=== PATIENT | female | born 1960 | race Caucasian/White ===

== ENCOUNTER 2018-09-03 12:20 | Day surgery (SDC) | payer BC ==
[~2018-09-03] VITALS: Ht 162.6 cm; Wt 63.5 kg
[~2018-09-03 12:20] MED LIST: IMPOYZ60 GM TOP; POTASSIUM CHLOR8 ME1 PO
[2018-09-03] MEDS ORDERED: ZOFRAN8 MG PO ×2 (12:44→15:00)
[2018-09-03] MEDS ORDERED: NORCO 5-325 TA1 EACH PO ×2 (12:44→15:00)
[2018-09-03] MEDS ORDERED: NEURONTIN600 MG PO ×2 (12:45→15:00)
[2018-09-03] MEDS ORDERED: SENNA8.6 MG PO ×2 (12:45→15:00)
--- NOTE | 2018-09-03 14:30 | NUR ---
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
[2018-09-03] MEDS ORDERED: XARELTO15 MG PO ×2 (15:07→15:29)
== END 2018-09-03 15:45 | disposition home or self-care (01) ==
LOC: DS 12:20 → OPS 12:20
DX: S82.141A Displaced bicondylar fracture of right tibia, initial encounter for closed fracture (principal); I82.890 Acute embolism and thrombosis of other specified veins; Z53.8 Procedure and treatment not carried out for other reasons
CPT/HCPCS: 64445; 64447; 76942; 93971; J0330; J0735; J1100; J1885; J2250; J2405; J2704; J2765; J3010; J7120

== ENCOUNTER 2024-08-08 08:50 | Day surgery (SDC) | payer BC ==
[2024-08-06 08:49] VITALS: BP 153/97
[~2024-08-08] VITALS: Ht 162.6 cm; Wt 68.2 kg
--- NOTE | ~2024-08-08 | OR ---
[facility] [address] [facility] [place] [address] Draft DATE OF OPERATION: 08/08/2024 SURGEON: Mary Melgar MD PREOPERATIVE DIAGNOSIS: Postmenopausal bleeding. POSTOPERATIVE DIAGNOSIS: Postmenopausal bleeding. PROCEDURE PERFORMED: Hysteroscopy, dilatation and curettage and guided biopsies. ANESTHESIA: General endotracheal. IV FLUIDS: Please see Anesthesia record. ESTIMATED BLOOD LOSS: Zero. URINE OUTPUT: Not indicated. SPECIMENS: 1. Endometrial curettings. 2. Endometrial polyp. COMPLICATIONS: None. FINDINGS: Grade 2 uterine prolapse was noted at the patient's hymen. Cervix appeared normal. Hysteroscopy showed 3 small polyps that were removed in their entirety. No conservative findings are evident of hyperplasia or malignancy. CONDITION: Stable to recovery room. PATIENT NAME: JORGE A JIMENES OPERATIVE REPORT DATE OF : 64 REPORT #: [id number] PHYSICIAN: MARY MELGAR MD PCP: TONI BRASHER PA-C REPORT IS CONFIDENTIAL AND NOT TO BE RELEASED WITHOUT AUTHORIZATION [facility] [address] [place], [place] [address], [place] [address] Draft INDICATION AND CONSENT: The patient is a 64-year-old postmenopausal female, who presented with one episode of postmenopausal bleeding. A pelvic ultrasound was performed, which showed a thickened endometrial stripe. Thus, recommendation was for endometrial sampling. The patient was given the option of an endometrial biopsy in office versus hysteroscopy and D and C in the operating room for a more thorough examination of the intrauterine tissue. She opted for the hysteroscopy and D and C and guided biopsy. All the risks, benefits, alternatives and indications were reviewed with the patient in great detail including the risk of bleeding, infection, damage to surrounding structures. Consents were signed and all questions were answered. PROCEDURE IN DETAIL: The patient was taken to the operating room with IV fluids running and pneumatic compression stockings applied to the lower extremities. She was prepped and draped in a normal sterile fashion and placed in a lithotomy position. Time out was performed. No antibiotics are indicated. A speculum was placed. The cervix was identified. Single tooth tenaculum was placed on the anterior lip of the cervix. Cervix was sequentially dilated to accommodate a 5 mm hysteroscope. The hysteroscope was placed and the aforementioned findings were noted. A small tissue biopsy device was placed in the hysteroscope and the clots were removed in their entirety. The hysteroscope was then removed. A small curettage was then performed. The endometrial curettings were sent to pathology. Single tooth tenaculum was removed from the patient's cervix. No bleeding was noted. No laceration and no concerning findings. The patient was awoken from anesthesia. She tolerated the procedure well. Counts were correct x2. She was taken to the recovery room and discharged home once she is . She was sent home with no medications and will follow up in 2 to 3 weeks for postop followup with pathology. Mary Melgar MD /MODL /[id number] Copies: PATIENT NAME: JORGE A JIMENES OPERATIVE REPORT DATE OF : 64 REPORT #: [id number] PHYSICIAN: MARY MELGAR MD PCP: TONI BRASHER PA-C REPORT IS CONFIDENTIAL AND NOT TO BE RELEASED WITHOUT AUTHORIZATION [address] [address] Draft ~ PATIENT NAME: JORGE A JIMENES OPERATIVE REPORT DATE OF : 64 REPORT #: [id number] PHYSICIAN: MARY MELGAR MD PCP: TONI BRASHER PA-C REPORT IS CONFIDENTIAL AND NOT TO BE RELEASED WITHOUT AUTHORIZATION
[~2024-08-08 08:50] MED LIST changes: +CALCIUM500 MG PO; +COZAAR50 MG PO; +DILAUDID4 MG PO; +FOSAMAX70 MG PO; +HYDROCODON-ACE1 EA11 PO; +IBLOOD GLUCOSE TEST STRIP 1 EA TEST VI PRN; +LACTATED RINGER'S 1,000 ML IV SCH; +LIDOCAINE HCL 1% 5 ML SDV INJ ONE; +MIRALAX119 GM PO; +MULTI VITAMIN1 EACH PO; +NEURONTIN600 MG PO; +NORCO 5-325 TA1 EACH PO; +SENNA8.6 MG PO; +VITAMIN C500 M1 PO; +XARELTO15 MG PO; +ZOFRAN8 MG PO
[2024-08-08 09:06] VITALS: BP 183/82
[2024-08-08] MEDS ORDERED: CALCIUM 250-D1 EACH PO (09:09)
[2024-08-08] MEDS ORDERED: VITAMIN B COMP1 EACH PO (09:09)
[2024-08-08 09:16] VITALS: BP 147/86
[2024-08-08] MEDS ORDERED: fentaNYL citrate 100 MCG/2 ML VIAL ONE (10:05)
[2024-08-08] MEDS ORDERED: DEXAMETHASONE SOD PHOS 4 MG/ML VIAL ONE (10:05)
[2024-08-08] MEDS ORDERED: ondansetron HCL 4 MG/2 ML VIAL ONE (10:05)
[2024-08-08] MEDS ORDERED: propofoL 200 MG/20 ML VIAL ONE ×2 (10:05→10:06)
[2024-08-08] MEDS ORDERED: KETOROLAC TROMETHAMINE 30 MG/ML VIAL ONE (10:05)
[2024-08-08] MEDS ORDERED: LIDOCAINE HCL 2% 5 ML SDV ONE (10:05)
[2024-08-08] MEDS ORDERED: droPERidol 5 MG/2 ML VIAL IV PRN (11:00)
[2024-08-08] MEDS ORDERED: ondansetron HCL 4 MG/2 ML VIAL IV PRN (11:00)
[2024-08-08] MEDS ORDERED: IBLOOD GLUCOSE TEST STRIP 1 EA TEST VI PRN (11:00)
[2024-08-08] MEDS ORDERED: NALOXONE HCL 0.4 MG SYR IV PRN (11:00)
[2024-08-08] MEDS ORDERED: fentaNYL citrate 50 MCG/ML SDV IV PRN (11:00)
[2024-08-08 13:01] VITALS: BP 141/89
--- NOTE | 2024-08-08 13:43 | NUR ---
08/08/24 1343 Jael Caicedo 1232- PT PRESENTS TO PACU, SUPINE POSITION, AWAKE BUT DROWSY. DENIES NAUSEA, REPORTS PAIN 1/10 LOW ABD. ABD SOFT, NON DISTENDED. ARIEL PAD IN PLACE, NO VAGINAL BLEEDING AT THIS TIME. LR INFUSING TO LH IV. BREATHING EVEN AND NON LABORED, O2 AT 6L PER MASK. ALL MONITORS IN PLACE. 1236- PT MOVED TO ROOM AIR, NO SIGNS OF DISTRESS. FOLLOWING COMMANDS. 1247- PT SAT UP IN BED, DENIES NAUSEA, NO CHANGE IN PAIN. ICE WATER PROVIDED. 1250- ATTEMPTED TO CALL [facility] TO SCHEDULE FOLLOW UP, NO ANSWER. 1300- PT CONTINUES TO DENY NAUSEA, 1/10 PAIN. SMALL AMOUNT OF BRIGHT RED BLOOD NOTED VAGINALLY. PT REPORTS FEELING READY TO START GETTING DRESSED. 1303- PT UP TO SIDE OF BED, TOLERATING WELL. MESH PANTIES PROVIDED. PT STOOD AND STEADY ON FEET. NO DIZZINESS OR NAUSEA. SALINE LOCK REMOVED, TIP INTACT, DRESSING APPLIED. PT TO GET DRESSED, CALLED FOR RIDE. 1310- PT VERBALIZED UNDERSTANDING OF INSTRUCTIONS. ALERT AND ORIENTED, NO SIGNS OF DISTRESS. TRANSFERRED TO WHEELCHAIR WITH STEADY GAIT. PT TAKEN OUT TO FAMILY CAR WITH ALL BELONGINGS.
--- NOTE | 2024-08-08 14:02 | EKG ---
[facility] [address] [facility] [place] [address] Signed Normal sinus rhythm Nonspecific T wave abnormality Abnormal ECG When compared with ECG of 27-AUG-2018 16:33, No significant change was found Confirmed by Luis Morel MD ([id number]) on 08/08/2024 2:02:26 PM Electronically Signed By: LUIS MOREL MD 08/08/24 1402 PATIENT NAME: HEATHER JIMENESRA DELONG Electrocardiogram DATE OF : 64 PHYSICIAN: LUIS MOREL MD REPORT #: [id number] REPORT IS CONFIDENTIAL AND NOT TO BE RELEASED WITHOUT AUTHORIZATION
== END 2024-08-08 13:10 | disposition home or self-care (01) ==
LOC: DS 08:50 → OPS 08:50 → DS 11:00 → OPS 11:00
PROVIDERS: ATTEND Student in an Organized Health Care Education/Training Program
PROC: 0UDB8ZX Extraction of Endometrium, Via Natural or Artificial Opening Endoscopic, Diagnostic (ICD-10-PCS; principal; 2024-08-08 10:00)
DX: N84.0 Polyp of corpus uteri (principal); N81.2 Incomplete uterovaginal prolapse; M81.0 Age-related osteoporosis without current pathological fracture; Z79.83 Long term (current) use of bisphosphonates; Z79.899 Other long term (current) drug therapy
CPT/HCPCS: 00952; 93005; 93010; J1100; J1885; J2003; J2405; J2704; J3010